=== PATIENT | female | born 1980 | race Hispanic/Latino ===

== ENCOUNTER 2019-02-28 11:08 | Inpatient (IN) | payer OTHER ==
--- NOTE | 2019-02-27 15:06 | PDOC.FPROB ---
FMR OB H&P: HPI - History of Present Illness Chief Complaint: repeat LTCS History of Present Illness: 38 yo @ 39.4wks here for a repeat LTCS. Pt denies contractions, LOF, VB, dysuria, vaginal discharge. Endorses good movement. She has A2, GDM, controlled on metformin 1000mg BID. She has a remote hx of HSV-2, on ppx, and has been asymptomatic this entire . She has had 3 prior CS here at [facility]. Her other name is Gwendolyn Curran in the system. 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 History: Pap NILM - Surgical History Sx History: Prior CS X 3, most recent two CS under name of Gwendolyn Curran; 2010 op note comments on extensive adhesions - Social History Social History: denies smoking, alcohol, drug use FMR OB H&P: Medications - Current Home Medications: Medication Instructions Recorded Confirmed Type Pnv No.95/Ferrous Fum/Folic AC 1 tab PO DAILY 02/28/19 02/28/19 History [ Vitamins Tablet] metFORMIN HCl 2 tab PO BID 02/28/19 02/28/19 History Acetaminophen [Tylenol Regular 650 mg PO Q4HR PRN #40 tab 03/02/19 Rx Strength] Docusate Calcium [Surfak] 240 mg PO BID PRN #14 cap 03/02/19 Rx Ferrous Sulfate [Feosol] 325 mg PO BID #60 tab 03/02/19 Rx Ibuprofen [Motrin] 800 mg PO Q8HR #21 tab 03/02/19 Rx Allergies/Adverse Reactions: Allergies Allergy/AdvReac Type Severity Reaction Status Date / Time No Known Allergies Allergy Verified 02/28/19 12:07 FMR OB H&P: ROS - Review of Systems General: denies: fever/chills, weight/appetite/sleep changes ENT: denies: nasal congestion, rhinorrhea Cardiovascular: denies: chest pain, palpitation, edema Respiratory: denies: cough, congestion, shortness of breath Gastrointestinal: denies: abdominal pain, indigestion Genitourinary (Female): denies: incontinence, dysuria Musculoskeletal: denies: pain, stiffness Neurologic: denies: numbness, syncope Integumentary: denies: itching, rash Endocrine: denies: polydipsia, polyuria Psychological: denies: depression, anxiety FMR OB H&P: A/P - Problem List (1) Normal intrauterine in third trimester Status: Acute Code(s): Z34.93 - ENCNTR FOR SUPRVSN OF NORMAL PREG, UNSP, THIRD TRIMESTER (2) Gestational diabetes mellitus, class A2 Status: Acute Code(s): O24.419 - GESTATIONAL DIABETES MELLITUS IN , UNSP CONTROL Discussion: Date/Time: 02/27/19 1500 38 yo @ 39.4wks admitted for a repeat LTCS. sIUP- -admit to L&D. Consult anesthesia. Labs. Ppx abx. Gestation diabetes, A2- -accuchecks q4h AMA-aware HSV-2 -on acyclovir for ppx -asymptomatic This H&P was discussed with Dr. Bellamy who agrees with the above assessment and plan. Addendum - Attending - Attending Attestation Date/Time: 03/04/19 1656 I personally evaluated the patient and discussed the management with Dr. Juan Jose Soni on 02/28/19. I agree with the History, Examination, Assessment and Plan documented above with any addition or exceptions noted below. 38 y.o. with DM on orals with prior Csxn x3 for repeat.
--- NOTE | 2019-02-28 08:32 | PDOC.EVN ---
Event Note - Event Note Event Note: PCP: Kemal HPI: This is a 38 yo at 39.4 wks by 9.3 wk us presenting for scheduled repeat c/s. EDC 03/03/19 She affirms movement, denies cxns, ROM, bleeding/discharge. Denies PUENTE, visual changes, SOB, or swelling. History: OB hx: term c/s x3 PMH: HSV-2 PSH: c/s x3 Meds: PNV Soc Hx: denies smoking, alcohol, drugs Fam Hx: downs in cousin Blood type: O+ Abs screen neg Hep b neg RPR/HIV neg Rubella immune PAP NILM GC/CT neg Progenity negative GBS: neg 1 hr GCT: 196 3 hr gct: 84, 209, 183, 153 REVIEW OF SYSTEMS: Gen: no fever, chills, or sweats Neuro: no numbness/tingling, no weakness, denies headache Eyes: no visual changes ENT: no hearing changes, no sore throat, no runny nose Resp: no cough, no SOB, no wheeze Card: denies chest pain, no palpitations GI: no N/V/D, no abdominal pain : no dysuria, no hematuria MSK: no myalgias, no joint pain/stiffness Heme: no easy bruising/bleeding Skin: no rash, no erythema PHYSICAL EXAMINATION: General: NAD, alert and oriented x3 HEENT: PERRLA, EOMI, normal sclera, oropharynx without erythema or exudate Neck: Supple. Full ROM. Heart/Cardiovascular System: RRR, Cap refill < 3 seconds, no rub, no murmur Lungs/Respiratory System: clear to auscultation bilaterally. No increased work of breathing. Room air. Abdomen/Gastro-Intestinal System: no abdominal tenderness, normal bowel sounds, Gravid Extremities: Warm extremities. No cyanosis or edema. Neuro: No gross deficits appreciated. CN 2-12 grossly intact Psychiatry: Awake, Alert and cooperative with exam Skin: No lesions, rashes, or ulcers Musculoskeletal: Full ROM A/P: This is a xx yo GxPx at xx wks by LMP/1TUS presenting for # Repeat c/s x4, AMA - Ant placenta - On ASA # Hx of HSV-2, asymptomatic - cont ppx # GDM A2 - On metformin, glucose log WNL Contraception: plans for nexplanon
[2019-02-28] MEDS ORDERED: Promethazine HCl 25 MG/ML VIAL IM PRN ×3 (11:16→16:06)
[2019-02-28] MEDS ORDERED: Ondansetron PF 4 MG/2 ML Vial IVP PRN ×4 (11:16→17:50)
[2019-02-28] MEDS: Lactated Ringer's 1,000 ML IV SCH ×2 (11:20→13:05)
[2019-02-28 11:44] VITALS: BMI 31.1
[2019-02-28 11:46] LABS: Hemoglobin 13.4 g/dL (12.0-16.0); Mean Corpuscular HGB CONC 35.9 g/dL (32.0-36.0); Mean Corpuscular Hemoglobin 32.1 pg (27.0-31.0); Mean Corpuscular Volume 89.4 fL (78.0-98.0); Mean Platelet Volume 7.5 fL (7.4-10.4); Platelet Count 161 thou/uL (130-400); RBC Distribution Width 13.2 % (11.5-14.5); Red Blood Cell (RBC) Count 4.19 mill/uL (4.20-5.40); White Blood Cell (WBC) Count 6.6 thou/uL (4.8-10.8)
[2019-02-28] MEDS ORDERED: Bicitra 30 ML UDCUP PO SCH (12:15)
[2019-02-28] MEDS ORDERED: CEFAZOLIN 2 GM in Premix Bag 1 BAG IVPB SCH (12:15)
[2019-02-28 12:24] LABS: HBSAg Index 0.31 S/CO (0-0.99); Hep B Surf Ag Non-Reactive S/CO (NonReactive); Syphilis Antibody Nonreactive (Nonreactive); Syphilis Antibody Index 0.05 S/CO (<1.00 Non-Reactive)
[2019-02-28] MEDS ORDERED: Ondansetron PF 4 MG/2 ML Vial ONE ×2 (13:00→14:11)
[2019-02-28] MEDS ORDERED: MORPHINE 5 MG/10 ML PF VIAL ONE (14:11)
[2019-02-28] MEDS ORDERED: Oxytocin 10 UNITS/ML VIAL ONE (14:11)
[2019-02-28] MEDS ORDERED: ePHEDrine/0.9% NaCl/PF SYRINGE 50 mg/10 ml ONE (14:11)
[2019-02-28] MEDS ORDERED: Eucerin (Mineral Oil/Petrolatum,White) 30 gm Jar TOP PRN ×2 (15:44→16:06)
[2019-02-28] MEDS ORDERED: Promethazine HCl 25 MG SUPP PR PRN ×2 (15:44→16:06)
[2019-02-28] MEDS ORDERED: Naloxone HCl 0.4 mg/ml Vial IV PRN ×2 (15:44→16:06)
[2019-02-28] MEDS ORDERED: HYDROmorphone 2 MG/ML VIAL SLOW IVP PRN ×2 (15:44→16:06)
[2019-02-28] MEDS ORDERED: Meperidine HCl/PF 25 MG/ML VIAL SLOW IVP PRN ×2 (15:44→16:06)
[2019-02-28] MEDS ORDERED: diphenhydrAMINE 50 MG/ML VIAL IVP PRN ×2 (15:44→16:06)
[2019-02-28] MEDS ORDERED: L&D-Morphine 4 MG/ML VIAL SLOW IVP PRN ×2 (15:44→16:06)
[2019-02-28] MEDS ORDERED: Ondansetron HCl/PF 4 MG/2 ML Vial IVP PRN ×2 (15:44→16:06)
[2019-02-28] MEDS ORDERED: Naloxone HCl 0.4 mg/ml Vial IVP PRN ×4 (15:44→16:06)
[2019-02-28] MEDS ORDERED: Ketorolac Tromethamine 30 MG/ML VIAL IVP SCH ×2 (15:45→16:15)
[2019-02-28] MEDS ORDERED: Communication Order-Pharmacy FS SCH ×2 (16:00→16:15)
[2019-02-28] MEDS ORDERED: Ketorolac Tromethamine 30 MG/ML VIAL IVP PRN (16:06)
--- NOTE | 2019-02-28 16:11 | PDOC.OPDEL ---
OB Operative/Delivery Note Delivery Dr/Surgeon: Kemal Assist: Osmani Turk Pre-Delivery Diagnosis: scheduled section Procedure/Post Delivery Dx: repeat low transverse CS Weeks gestation: 39 Anesthesia: spinal - Findings A Sex: male Weight: 4030 kg - 1 min: 9 - 5 min: 9 - Additional Findings/Plan Placenta delivered: manual removal findings: low transverse hysterotomy without extension Estimated blood loss: 750 Compilations/Other Findings: Date of Procedure: 02/28/2019 Resident Surgeon: Dr. Susi Sommer MD, PGY-2 Plastic Surgery Assistant Surgeon: Dr. West Turk, Dr. Elinor Keen Attending Surgeon: Dr. Kd Bellamy, Dr. Consuelo Keith Procedure: Repeat low transverse caesarean section Preoperative Diagnosis: 1)Term intrauterine 2)Previous 3)Advanced Maternal Age 4.)HSV-2 5.)Gestation Diabetes, A2 Postoperative Diagnosis: 1)Term intrauterine , delivered 2)Previous 3)Advanced Maternal Age 4.)HSV-2 5.)Gestation Diabetes, A2 Anesthesia: spinal Indications: The patient is a 38 year old now 4004 female at 39.4weeks gestation who presents for a repeat scheduled . Procedure in Detail: After risks, benefits, and alternatives were explained to the patient, she gave informed consent. Pre-operative antibiotics included Cefazolin 2 gram IV. The patient was taken to the operating room and spinal anesthesia was initiated. She was placed in the supine position with a left tilt and prepped and draped in usual sterile fashion. A Pfannenstiel incision was made with a scalpel and carried down to the level of the fascia which was sharply nicked. The fascial cut was extended bilaterally with Rosales sissors. An umbilical hernia was noted and careful consideration taken while the inferior and superior edges of the cut fascial edges were elevated with Joshua clamps and the underlying rectus muscles dissected free bluntly and with may sissors. The recti were divided with hemostats at the midline, and entered bluntly and retracted. The peritoneum was entered bluntly with hemostats and cautery, with careful consideration of the bladder. The Uday-O retractor was placed. Bladder flap was created with Metzenbaum scissors. A low transverse score was made with the scalpel and the uterus was entered in the midline with the scalpel. Clear fluid was seen. The hysterotomy was extended manually. The infant was noted to be LOT and was easily delivered by fundal pressure. Mouth and nares were bulb suctioned. Cord clamped and cut and grossly normal male was handed to waiting nurse. Cord blood was obtained. Placenta was manually extracted, found to be intact with 3 vessel cord and discarded. The uterus endometrium was curetted with a dry lap and suctioned. Ringed forceps were used to extract additional placental tissue from the lower uterine segment. The uterus was closed with a running locking #1 Monocryl suture. One figure of eight using #1 Monocryl was required at the left edge of the hysterotomy. Following this hemostasis was noted. The gutters on either side of the uterine hysterotomy were examined for bleeding and found to be hemostatic. The uterus was externalized, examined posteriorly, and found to be hemostatic. The uterus was again internalized and the hysterotomy was again noted to be hemostatic. The fascia was closed with a running non-locking 0-Vicryl suture. The subcutaneous tissue was irrigated and there were a few bleeders, found to be hemostatic after cautery with the bovi. The subcutaneous tissue was approximated using a 2-0 Plain suture, in the simple interrupted fashion. The skin was approximated with a running locking 4-0 Monocryl suture in the subcuticular fashion, followed by dermabond, and a pressure dressing was placed. All counts were correct. The patient tolerated the procedure well and was taken to the recovery room in stable condition. Estimated Blood Loss: 657ml Complications: None Findings: Grossly normal male infant with Apgars of 9 & 9. Grossly normal placenta with 3 vessel cord discarded. Drains: Velasquez to gravity draining clear urine Post delivery plan: recovery in LICU Addendum - Attending - Attending Attestation Date/Time: 03/04/19 3503 I, Kd Bellamy MD, personally evaluated the patient and discussed indications for the procedure described by Dr. Simons on 02/28/19.. I directly supervised and participated in the Section and I agree with the description of procedure as documented above without any addition or exceptions.
[2019-02-28] MEDS ORDERED: NS / Oxytocin 40 units/1000ml 1,000 ML ONE (17:10)
[2019-02-28] MEDS ORDERED: HYDROcodone/Acetaminophen 5/325 mg Tablet PO PRN (17:50)
[2019-02-28] MEDS ORDERED: Lanolin Ointment 7 GM TUBE TOP PRN (17:50)
[2019-02-28] MEDS ORDERED: NS / Oxytocin 40 units/1000ml 1,000 ML IV SCH (17:50)
--- NOTE | 2019-02-28 20:00 | PDOC.EVN ---
Event Note - Event Note Event Note: 4HR POST OP NOTE: Subjective: This is a 38yo @ 39.5 wks who delivered a viable M via rLTCS @ 1453 today. Patient resting comfortably in bed. No issues or complaints. Patient states she hasn't really gotten up much yet. Tolerating PO. Denies any chest pain, palpitations, NVD, abdominal pain, vision changes, LE edema. States her bleeding is minimal. Has not yet passed gas. Per nursing, they did remove some clots, but the patient has had minimal bleeding after this. ROS: per HPI Objective: VS: T: 98.1, HR: 66, RR: 18, O2 sat: 99% on RA, BP: 119/54 PE: General: NAD, awake, alert, & oriented HEENT: normocephalic, atraumatic, EOMI, trachea midline Cardio: RRR, no murmurs, rubs or gallops Resp: Non labored breathing, CTAB Abdominal: dressing in place, clean, dry and intact; appropriately TTP , fundus firm 2cm below umbilicus : matthew in place, yellow clear, good output MSK: no extremity edema b/l, SCDs in place A&P: - Continue routine PP care - Will monitor VS - Will monitor bleeding closely; H/H in AM - Encourage ambulation Case discussed with Dr. Bo Agree with above. Luci
[2019-02-28] MEDS: Ketorolac Tromethamine 30 MG/ML VIAL IVP PRN (21:59)
[2019-02-28] MEDS: Ferrous Sulfate 325 MG TAB PO SCH (22:04)
[2019-02-28] MEDS: Docusate Calcium (SURFAK) 240 MG CAP PO SCH (22:04)
[2019-02-28] MEDS: Acetaminophen 325 MG TAB PO SCH (22:05)
[2019-03-01] MEDS: Acetaminophen 325 MG TAB PO SCH ×6 (02:44→21:44)
[2019-03-01] MEDS: Ketorolac Tromethamine 30 MG/ML VIAL IVP PRN (04:45)
--- NOTE | 2019-03-01 06:54 | PDOC.OBPPN ---
FMR OB PN: Subj - Interval History Day: 1 Chief Complaint: repeat LTCS x 4 Indentification: 38 @ 39.4wks s/p repeat LTCS Interval History: Tolerating normal diet, passing flatus, pain controlled, ambulating. FMR OB PN: Obj - Maternal Vital signs: Selected Entries 03/01/19 04:45 Temperature 98.1 F Pulse Rate 76 Blood Pressure 106/52 L [Semi-Fowlers] Respiratory 18 Rate O2 Sat by Pulse 98 Oximetry Oxygen Delivery Room Air Method - Urine output I&O: 02/27/19 02/28/19 03/01/19 06:59 06:59 06:59 Intake Total 2338 Output Total 1377 Balance 961 FMR OB PN: Exam - Physical Exam General: NAD, awake, alert and oriented HEENT: normocephalic and atraumatic Heart: RRR, other (systolic murmur) General: CTAB, no respiratory distress, good air movement Abdomen: soft, fundus(cm) (at umbilicus), other (appropriately tender) : incision healing well, no erythema, appropriately tender (clean, dry , and intact incision) Lymphatic: no unusual bruising or bleeding, no purpura FMR OB PN: Data - Labs Lab results: Laboratory Results - last 24 hr 02/28/19 02/28/19 02/28/19 11:37 11:37 11:37 WBC 6.6 RBC 4.19 L Hgb 13.4 Hct 37.4 MCV 89.4 MCH 32.1 H MCHC 35.9 RDW 13.2 Plt Count 161 MPV 7.5 Syphilis IgG/IgM Ab Nonreactive Hep Bs Antigen Non-Reactive Blood Type Antibody Screen 02/28/19 11:37 WBC RBC Hgb Hct MCV MCH MCHC RDW Plt Count MPV Syphilis IgG/IgM Ab Hep Bs Antigen Blood Type O POSITIVE Antibody Screen NEGATIVE FMR OB PN: A/P - Problem List (1) Normal intrauterine in third trimester Status: Acute Code(s): Z34.93 - ENCNTR FOR SUPRVSN OF NORMAL PREG, UNSP, THIRD TRIMESTER (2) Gestational diabetes mellitus, class A2 Status: Acute Code(s): O24.419 - GESTATIONAL DIABETES MELLITUS IN , UNSP CONTROL (3) History of herpes simplex type 2 infection Status: Acute Code(s): Z86.19 - PERSONAL HISTORY OF OTHER INFECTIOUS AND PARASITIC DISEASES (4) Advanced maternal age (AMA), 40 years or greater Status: Acute Code(s): [id number] - Discussion: Date/Time: 03/01/19 0653 38 yo now P4004 with gestational diabetes, A2, who is now s/p repeat LTCS to a TAGA male on 02/28. #sIUP, delivered- -repeat LTCS x 4 -continue routine post care -norco prn pain, ibuprofen scheduled, tylenol prn -encourage ambulation, adv diet as tolerated, ok to pull matthew, monitor I/O's #Gestational Diabetes, A2 -will continue accuchecks ACHS for 48-72 hours -hba1c at 4-6 weeks #AMA #Hx of [id number]-4-[id number] DVT prophylaxis: SCDs, encourage ambulation Code: Full Dispo: ok for dc>48 hours H. Kemal, PGY-2, Addendum - Attending - Attending Attestation Date/Time: 03/04/19 4423 I personally evaluated the patient and discussed the management with Dr. Kemal Low. I agree with the History, Examination, Assessment and Plan documented above with any addition or exceptions noted below. Pain controlled. Afeb. Incision C/D/I. Continue current care.
[2019-03-01 08:25] LABS: Hemoglobin 8.6 g/dL (12.0-16.0); Mean Corpuscular HGB CONC 33.9 g/dL (32.0-36.0); Mean Corpuscular Volume 91.5 fL (78.0-98.0); Mean Platelet Volume 6.9 fL (7.4-10.4); Platelet Count 142 thou/uL (130-400); RBC Distribution Width 13.4 % (11.5-14.5); Red Blood Cell (RBC) Count 2.77 mill/uL (4.20-5.40); White Blood Cell (WBC) Count 8.5 thou/uL (4.8-10.8)
[2019-03-01] MEDS ORDERED: [UNRECOGNIZED DRUG - REMARK] PO SCH (09:00)
[2019-03-01] MEDS ORDERED: Adacel (T-DAP) 0.5 ML SYRINGE IM ONE (09:00)
[2019-03-01] MEDS: Docusate Calcium (SURFAK) 240 MG CAP PO SCH ×2 (09:35→21:43)
[2019-03-01] MEDS: Prenatal Vitamin 1 TAB PO SCH ×2 (09:35→10:34)
[2019-03-01] MEDS: Ferrous Sulfate 325 MG TAB PO SCH ×2 (09:35→21:43)
[2019-03-01] MEDS: HYDROcodone/Acetaminophen 5/325 mg Tablet PO PRN ×2 (09:36→19:03)
[2019-03-01] MEDS: Ibuprofen 800 MG TAB PO SCH (21:43)
[2019-03-02] MEDS: Acetaminophen 325 MG TAB PO SCH ×3 (04:04→09:32)
[2019-03-02] MEDS: Ibuprofen 800 MG TAB PO SCH (06:19)
--- NOTE | 2019-03-02 07:04 | PDOC.OBPPN ---
FMR OB PN: Subj - Interval History Day: 2 Chief Complaint: repeat LTCS Indentification: 38 yo now 4 Interval History: Advanced diet, ambulating, pain controlled, passing flatus FMR OB PN: Obj - Maternal Vital signs: BP: [] HR: [] RR: [] Tmax: [] Pox: []% on [] Wt: [] - Urine output I&O: 03/01/19 03/02/19 03/03/19 06:59 06:59 06:59 Intake Total 2338 2400 Output Total 1377 707 Balance 961 1693 FMR OB PN: Data - Labs Lab results: Laboratory Results - last 24 hr 03/01/19 03/01/19 03/01/19 07:33 08:05 11:10 WBC 8.5 RBC 2.77 L Hgb 8.6 L Hct 25.3 L MCV 91.5 MCH 31.0 MCHC 33.9 RDW 13.4 Plt Count 142 MPV 6.9 L POC Glucose 91 148 H 03/01/19 03/01/19 03/02/19 17:00 22:05 06:20 WBC RBC Hgb Hct MCV MCH MCHC RDW Plt Count MPV POC Glucose 141 H 175 H 92 FMR OB PN: A/P - Problem List (1) Normal intrauterine in third trimester Status: Acute Code(s): Z34.93 - ENCNTR FOR SUPRVSN OF NORMAL PREG, UNSP, THIRD TRIMESTER (2) Gestational diabetes mellitus, class A2 Status: Acute Code(s): O24.419 - GESTATIONAL DIABETES MELLITUS IN , UNSP CONTROL (3) History of herpes simplex type 2 infection Status: Acute Code(s): Z86.19 - PERSONAL HISTORY OF OTHER INFECTIOUS AND PARASITIC DISEASES (4) Advanced maternal age (AMA), 40 years or greater Status: Acute Code(s): [id number] - (5) S/P repeat low transverse Status: Acute Code(s): Z98.891 - HISTORY OF UTERINE SCAR FROM PREVIOUS SURGERY Discussion: Date/Time: 03/02/19 0700 38 yo now P4004 with gestational diabetes, A2, who is now s/p repeat LTCS to a TAGA male on 02/28. #sIUP, delivered- -repeat LTCS x 4 -continue routine post care -norco prn pain, ibuprofen scheduled, tylenol prn -encourage ambulation, adv diet as tolerated, monitor I/O's #Gestational Diabetes, A2 -will continue accuchecks ACHS for 48-72 hours -elevated overnight, pt may need metformin 1000mg BID restarted based on sugars in the 170s -will see if a carb controlled diet is enough to lower them -hba1c at 4-6 weeks #AMA-aware #Hx of [id number]-[id number] -acyclovir prn DVT prophylaxis: SCDs, encourage ambulation Code: Full Dispo: ok for dc>48 hours H. Kemal, PGY-2, Addendum - Attending - Attending Attestation Date/Time: 03/03/19 3239 I personally evaluated the patient and discussed the management with Dr. Kemal Nelson . I agree with the History, Examination, Assessment and Plan documented above with any addition or exceptions noted below. Pain controlled. Afeb. Incision C/D/I. Continue current care.
[2019-03-02 08:01] VITALS: BP 115/56; TEMP 98.3
[2019-03-02] MEDS ORDERED: Docusate 100 MG CAP PO SCH (09:00)
[2019-03-02] MEDS: Prenatal Vitamin 1 TAB PO SCH ×2 (09:33→09:39)
[2019-03-02] MEDS: Ferrous Sulfate 325 MG TAB PO SCH (09:33)
[2019-03-02] MEDS: Docusate Calcium (SURFAK) 240 MG CAP PO SCH (09:33)
[2019-03-02] MEDS: HYDROcodone/Acetaminophen 5/325 mg Tablet PO PRN (09:37)
== END 2019-03-02 13:45 | disposition home or self-care (01) | DRG 787 ==
LOC: L&D 11:08 → 3SW 18:12
PROVIDERS: ADMIT Family Medicine; ATTEND Family Medicine
PROC: 10D00Z1 Extraction of Products of Conception, Low, Open Approach (ICD-10-PCS; principal; 2019-02-28)
DX: O34.211 Maternal care for low transverse scar from previous cesarean delivery (principal); O98.52 Other viral diseases complicating childbirth; O24.424 Gestational diabetes mellitus in childbirth, insulin controlled; B00.9 Herpesviral infection, unspecified; Z3A.39 39 weeks gestation of pregnancy; Z37.0 Single live birth
CPT/HCPCS: 36415; 36416; 51702; 85027; 86780; 86850; 86900; 86901; 87340; 90715; J0690; J1885; J2270; J2405; J2590

== ENCOUNTER 2020-09-19 15:25 | Outpatient (CLI) | payer OTHER ==
--- NOTE | 2020-09-19 15:54 | MMO ---
Bilateral MAMMO Bilat Screen [facility]. CLINICAL HISTORY: Patient is 40 years old and is seen for screening. The patient has no family history of breast cancer. The patient has no personal history of cancer. VIEWS: The views performed were: bilateral craniocaudal with tomosynthesis and bilateral mediolateral oblique with tomosynthesis. This study has been interpreted with the assistance of computer-aided detection. MAMMOGRAM FINDINGS: The breasts are heterogeneously dense, which could obscure a lesion on mammography. There are no suspicious masses, suspicious calcifications, or new areas of architectural distortion. IMPRESSION: THERE IS NO MAMMOGRAPHIC EVIDENCE OF MALIGNANCY. A ROUTINE FOLLOW-UP MAMMOGRAM IN 1 YEAR IS RECOMMENDED. THE RESULTS OF THIS EXAM WERE SENT TO THE PATIENT. ACR BI-RADS Category 1 - Negative MAMMOGRAPHY NOTE: 1. A negative mammogram report should not delay a biopsy if a dominant of clinically suspicious mass is present. 2. Approximately 10% to 15% of breast cancers are not detected by mammography. 3. Adenosis and dense breasts may obscure an underlying neoplasm. Reported by: GENE CARTY MD Electonically Signed: [id number]
== END 2020-09-19 15:26 | disposition home or self-care (01) ==
LOC: BICMAMMO 15:25
PROVIDERS: ATTEND Family Medicine
DX: Z12.31 Encounter for screening mammogram for malignant neoplasm of breast (principal)
CPT/HCPCS: 77063; 77067

== ENCOUNTER 2022-09-15 09:55 | Outpatient (CLI) | payer BC | END 2022-09-15 09:56 | disposition home or self-care (01) | LOC: BICMAMMO 09:55 | PROVIDERS: ATTEND Student in an Organized Health Care Education/Training Program | DX: N63.15 Unspecified lump in the right breast, overlapping quadrants (principal); I89.8 Other specified noninfective disorders of lymphatic vessels and lymph nodes | CPT/HCPCS: 77066; G0279 ==

== ENCOUNTER → 2022-09-20 | Day surgery (SDC) | payer BC | END | disposition home or self-care (01) | LOC: BICULT 12:36 | PROVIDERS: ATTEND Student in an Organized Health Care Education/Training Program | DX: C50.811 Malignant neoplasm of overlapping sites of right female breast (principal); R59.0 Localized enlarged lymph nodes; Z17.0 Estrogen receptor positive status [ER+] | CPT/HCPCS: 19083; 38505 ==

== ENCOUNTER 2022-10-07 10:23 | Outpatient (CLI) | payer BC | END 2022-10-07 10:24 | disposition home or self-care (01) | LOC: NM 10:23 | PROVIDERS: ATTEND Internal Medicine | DX: C50.411 Malignant neoplasm of upper-outer quadrant of right female breast (principal); M54.9 Dorsalgia, unspecified | CPT/HCPCS: 71260; 74177; 78306; A9503 ==

== ENCOUNTER 2022-10-08 05:53 | Day surgery (SDC) | payer BC ==
[2022-10-06 14:00] VITALS: BMI 28.3
[2022-10-08] MEDS ORDERED: Acetaminophen 500 MG TAB ONE (06:40)
[2022-10-08 07:14] LABS: BHCG - Serum Negative (NEGATIVE); Pregs Control Background? CLEAR/WHITE (CLR/WHITE); Pregs Control Bar Appear? YES (CONTROL BAR)
[2022-10-08] MEDS ORDERED: Lidocaine 2% PF 5 ML VIAL ONE (08:00)
[2022-10-08] MEDS ORDERED: Fentanyl 250 MCG/5 ML VIAL ONE (08:00)
[2022-10-08] MEDS ORDERED: Bupivacaine/Epinephrine 0.25% 30 ML VIAL ONE (08:00)
[2022-10-08] MEDS ORDERED: Propofol 500 MG/50 ML VIAL ONE (08:00)
[2022-10-08] MEDS ORDERED: Lidocaine 2% 6 ML SYR ONE (08:06)
[2022-10-08] MEDS ORDERED: CEFAZOLIN 2 GM VIAL ONE (08:15)
[2022-10-08] MEDS ORDERED: Sodium Chloride 0.9% 100 ML ONE (08:15)
[2022-10-08] MEDS ORDERED: PROPOFOL 200 MG/20 ML VIAL ONE (08:28)
[2022-10-08] MEDS ORDERED: ePHEDrine 50 MG/ML VIAL ONE (08:28)
== END 2022-10-08 10:35 | disposition home or self-care (01) ==
LOC: SDC 05:53
PROVIDERS: ATTEND Surgery
PROC: 07953ZX Drainage of Right Axillary Lymphatic, Percutaneous Approach, Diagnostic (ICD-10-PCS; principal; 2022-10-08)
PROC: 02HV33Z Insertion of Infusion Device into Superior Vena Cava, Percutaneous Approach (ICD-10-PCS; principal; 2022-10-08)
PROC: 0JH60WZ Insertion of Totally Implantable Vascular Access Device into Chest Subcutaneous Tissue and Fascia, Open Approach (ICD-10-PCS; principal; 2022-10-08)
DX: C50.911 Malignant neoplasm of unspecified site of right female breast (principal); R59.0 Localized enlarged lymph nodes; Z17.1 Estrogen receptor negative status [ER-]
CPT/HCPCS: 71045; 84703; 88173; 93005; 93010; C1788; J1642; J2001; J2704; J3010; J3490

== ENCOUNTER 2023-04-28 07:20 | Day surgery (SDC) | payer BC ==
[2023-04-25 14:28] VITALS: BMI 32.1
[2023-04-28] MEDS ORDERED: Acetaminophen 500 MG TAB ONE (09:24)
[2023-04-28] MEDS ORDERED: Ketorolac Tromethamine 30 MG/ML VIAL ONE (09:24)
[2023-04-28] MEDS ORDERED: EPINEPHrine 1 MG/ML AMP ONE (12:24)
[2023-04-28] MEDS ORDERED: Isosulfan Blue 50 MG/5 ML VIAL ONE (12:24)
[2023-04-28] MEDS ORDERED: Bupivacaine 0.25% HCL 30 ML VIAL ONE (12:24)
[2023-04-28] MEDS ORDERED: Lidocaine 2% PF 5 ML VIAL ONE (12:35)
[2023-04-28] MEDS ORDERED: CEFAZOLIN 2 GM VIAL ONE (12:42)
[2023-04-28] MEDS ORDERED: Sodium Chloride 0.9% 100 ML ONE (12:42)
[2023-04-28] MEDS ORDERED: fentaNYL 50 mcg/mL 1 mL Vial ONE ×3 (12:44)
[2023-04-28] MEDS ORDERED: SUGAMMADEX SODIUM 200 MG/2 ML VIAL ONE (12:45)
[2023-04-28] MEDS ORDERED: PROPOFOL 200 MG/20 ML VIAL ONE (12:54)
[2023-04-28] MEDS ORDERED: Ondansetron PF 4 MG/2 ML Vial ONE (12:54)
[2023-04-28] MEDS ORDERED: ePHEDrine Sulfate 50 MG/10 ML VIAL ONE (12:54)
[2023-04-28] MEDS ORDERED: Lidocaine 1% PF 5 ML VIAL ONE (12:54)
== END 2023-04-28 16:15 | disposition home or self-care (01) ==
LOC: SDC 07:20
PROVIDERS: ATTEND Specialist
PROC: 0HBT0ZZ Excision of Right Breast, Open Approach (ICD-10-PCS; principal; 2023-04-28)
DX: C50.811 Malignant neoplasm of overlapping sites of right female breast (principal); N60.21 Fibroadenosis of right breast; Z17.1 Estrogen receptor negative status [ER-]
CPT/HCPCS: 19281; 76098; 78195; 88307; 88342; A9541; C1713; J0171; J1642; J1885; J2001; J2405; J2704; J3010; J3490; Q9968; S0020

== ENCOUNTER 2024-05-07 08:57 | Outpatient (CLI) | payer BC | END 2024-05-07 08:58 | disposition home or self-care (01) | LOC: BICMAMMO 08:57 | PROVIDERS: ATTEND Internal Medicine | DX: Z08 Encounter for follow-up examination after completed treatment for malignant neoplasm (principal); Z85.3 Personal history of malignant neoplasm of breast | CPT/HCPCS: 77066; G0279 ==